=== PATIENT | female | born 1975 | race Asian ===

== ENCOUNTER 2018-02-14 08:57 | Outpatient (CLI) | payer OTHER ==
--- NOTE | 2018-02-14 09:52 | XRay Report ---
ROUTINE CHEST, TWO VIEWS: HISTORY: Routine screening. The trachea, heart, mediastinal contour, lung waldrop and bony thorax are unremarkable. IMPRESSION: Unremarkable chest x-ray.
--- NOTE | 2018-02-14 13:59 | Ultrasound Report ---
ULTRASOUND ABDOMEN COMPLETE: TECHNIQUE: Transabdominal ultrasound with color Doppler interrogation. HISTORY: abdominal pain. COMPARISON: none. FINDINGS: LIVER: Normal. BILIARY SYSTEM: The gallbladder is partially contracted. There appears to be a 4 mm polyp in the gallbladder fundus. No evidence for shadowing gallstones or biliary dilatation. The CBD measures 3 mm. PANCREAS: Normal. SPLEEN: Normal. KIDNEYS: Normal. AORTA/IVC: Normal. ASCITES: None. IMPRESSION: Small gallbladder polyp, otherwise, unremarkable exam.
--- NOTE | 2018-02-14 16:20 | Mammography Report ---
BILATERAL DIGITAL SCREENING MAMMOGRAM WITH CAD:02/14/18 10:30:00 CLINICAL: Baseline screening. FINDINGS: The breasts are heterogeneously dense, which may obscure small masses. Bilateral asymmetries require additional imaging. No architectural distortion or suspicious calcifications. IMPRESSION: Bilateral asymmetries requiring further workup. BI-RADS CATEGORY: 0 -- Needs Additional Imaging RECOMMENDATION: Recall for bilateral true lateral and spot compression views and bilateral breast ultrasound if needed. ACR BI-RADS MAMMOGRAPHIC CODES: 0 = Needs additional imaging evaluation; 1 = Negative; 2 = Benign; 3 = Probably benign; 4 = Suspicious; 5 = Malignant; 6 = Known biopsy-proven malignancy COMMENT: 1. Dense breast tissue, i.e., adenosis, fibrocystic changes, etc., may obscure an underlying neoplasm. 2. Approximately 10% of cancers are not detected with mammography. 3. A negative mammography report should not delay biopsy if a clinically suspicious mass is present.
== END 2018-02-14 08:58 | disposition home or self-care (01) ==
LOC: US 08:57
PROVIDERS: ATTEND Family Medicine Adult Medicine
DX: Z12.31 Encounter for screening mammogram for malignant neoplasm of breast (principal); K82.4 Cholesterolosis of gallbladder; R05 Cough
CPT/HCPCS: 71046; 76700; 77067

== ENCOUNTER 2018-02-22 13:54 | Outpatient (CLI) | payer OTHER ==
--- NOTE | 2018-02-22 14:37 | Mammography Report ---
Bilateral mammogram: Call back patient for bilateral asymmetries. Additional spot cc and lateral compression imaging shows no significant asymmetries as questioned. The overall fibroglandular pattern is heterogeneous and not otherwise remarkable. Impression: Benign mammogram. Recommendation: Annual mammogram followup. BI-RADS CATEGORY: 1 = Negative ACR BI-RADS MAMMOGRAPHIC CODES: 0 = Needs additional imaging evaluation; 1 = Negative; 2 = Benign; 3 = Probably benign; 4 = Suspicious; 5 = Malignant; 6 = Known biopsy-proven malignancy COMMENT: 1. Dense breast tissue, i.e., adenosis, fibrocystic changes, etc., may obscure an underlying neoplasm. 2. Approximately 10% of cancers are not detected with mammography. 3. A negative mammography report should not delay biopsy if a clinically suspicious mass is present.
== END 2018-02-22 13:55 | disposition home or self-care (01) ==
LOC: SPVWC 13:54
PROVIDERS: ATTEND Family Medicine Adult Medicine
DX: R92.8 Other abnormal and inconclusive findings on diagnostic imaging of breast (principal)
CPT/HCPCS: 77066